=== PATIENT | female | born 1980 ===

== ENCOUNTER 2019-07-09 13:07 | Outpatient (CLI) | payer OTHER ==
--- NOTE | 2019-07-09 17:54 | MRI ---
EXAM: LEFT KNEE MRI WITHOUT IV CONTRAST: History: Left anterior knee pain. FINDINGS: There is a fairly extensive flap tear involving the lateral meniscus extending from near the posterio r root to the midbody with the displaced flap. Minimal intrasubstance degenerative signal of the medi al meniscus with some free edge irregularity, possibly some mild fraying or small subsurface tears. A nterior and posterior cruciate ligaments appear intact. Latera ligament complexes appear intact. No s ignificant joint effusion or abnormal marrow signal. There is mild degenerative and osteoarthrosis ch anges of all three compartments, more so involving the lateral compartment. Quadriceps and patellar t endons are intact. IMPRESSION: Fairly extensive lateral meniscus flap tear. Arthrosis and degenerative changes and some cartilage lo ss involving the medial and lateral compartments. No evidence for other significant acute internal de rangement. POS: T[facility]
== END 2019-07-09 13:08 | disposition home or self-care (01) ==
LOC: BICMRI 13:07
PROVIDERS: ATTEND Family Medicine
DX: M25.562 Pain in left knee (principal); G89.29 Other chronic pain; S83.105A Unspecified dislocation of left knee, initial encounter; S83.282A Other tear of lateral meniscus, current injury, left knee, initial encounter; M17.12 Unilateral primary osteoarthritis, left knee

== ENCOUNTER 2019-09-14 09:57 | Outpatient (CLI) | payer OTHER ==
--- NOTE | 2019-09-14 11:34 | MRI ---
MRI lumbar spine noncontrast HISTORY: Low back pain with bilateral radiculopathy. FINDINGS: Conus medullaris has normal appearance. Vertebral body heights and alignment are maintained . Desiccation of all of the intervertebral discs with the exception of the lumbosacral junction. T12-L1: Disc space narrowing. Posterior central annular fissure with minimal disc bulge. Circumferent ial degenerative changes with mild stenosis of the central canal. L1-2: Mild disc space narrowing. Large posterior annular fissure. Posterior disc bulge and circumfere ntial degenerative changes with moderate stenosis of the central canal. Mild left and [id number] right foraminal stenoses. L2-3: Minimal degenerative retrolisthesis. Prominent posterior disc bulge and circumferential degener ative changes. Moderate stenosis of the central canal. Moderate right and severe left foraminal stenoses. L3-4: Posterior annular fissure. Posterior disc bulge and circumferential degenerative changes. Mild stenosis of the central canal. Severe bilateral foraminal stenoses. L4-5: Disc space narrowing. Very large posterior central disc herniation, severely compressing the th ecal sac and cauda equina, obliterating signal associated with the intrathecal CSF. Degenerative changes and disc bulge also result in moderate right and moderate to severe left foraminal stenoses. L5-S1: Mild disc bulge. Osteophytosis. Thecal sac is patent. Mild bilateral foraminal stenoses. IMPRESSION: Large very severe posterior disc herniation at the L4-5 level, completely compressing the thecal sac and cauda equina. Please consider immediate neurosurgical evaluation. Other multilevel degenerative changes throughout the lumbar spine as detailed above, including severe left foraminal stenoses at the L2-3 and L3-4 levels. Findings were called to the physician farm assistant at the [facility] in [place] at the time of the exam.
== END 2019-09-14 09:58 | disposition home or self-care (01) ==
LOC: BICMRI 09:57
PROVIDERS: ATTEND Family Medicine
DX: M51.16 Intervertebral disc disorders with radiculopathy, lumbar region (principal); G62.9 Polyneuropathy, unspecified; M47.26 Other spondylosis with radiculopathy, lumbar region; M48.061 Spinal stenosis, lumbar region without neurogenic claudication
CPT/HCPCS: 72148

== ENCOUNTER 2019-09-19 16:46 | Inpatient (IN) | payer OTHER ==
[2019-09-19] MEDS ORDERED: Promethazine HCl 25 MG/ML VIAL IM PRN (17:38)
[2019-09-19] MEDS ORDERED: Acetaminophen 325 MG TAB PO PRN (17:38)
[2019-09-19] MEDS ORDERED: Milk Of Magnesia 30 ML UDCUP PO PRN (17:38)
[2019-09-19] MEDS ORDERED: traMADol HCl 50 MG TAB PO PRN (17:38)
[2019-09-19] MEDS ORDERED: Ondansetron PF 4 MG/2 ML Vial IVP PRN (17:38)
[2019-09-19] MEDS ORDERED: Mag-Al 1200 mg/1200 mg/30 ML UDCUP PO PRN (17:38)
[2019-09-19] MEDS ORDERED: Ondansetron PF 4 MG/2 ML Vial ONE (18:06)
[2019-09-19] MEDS ORDERED: Fentanyl 100 MCG/2 ML VIAL ONE (18:06)
[2019-09-19] MEDS ORDERED: Dexamethasone 10 MG/ML VIAL ONE (18:06)
[2019-09-19 18:34] LABS: Anion Gap 12 mmol/L (10-20); BUN (Urea Nitrogen) 18 mg/dL (7.0-18.7); Calc. Creatinine Clearance 0 mL/min (70-130); Calcium 9.5 mg/dL (7.8-10.44); Carbon Dioxide 27 mmol/L (22-29); Chloride 106 mmol/L (98-107); Estimated GFR-MDRD 84; Glucose 89 mg/dL (70-105); Potassium 4.5 mmol/L (3.5-5.1); Sodium 140 mmol/L (136-145)
--- NOTE | 2019-09-19 19:43 | HP ---
HISTORY OF PRESENT ILLNESS: The patient is a 39-year-old female with a history of hypertension who presented to our office earlier today for severe low back and bilateral leg pain. The patient reports the symptoms began suddenly in July 2019 without inciting event. She describes as an aching spasm sensation all across the lower lumbar spine with sharp shooting pains radiating down bilateral legs. This is worse with any movement or activity. She has difficulty getting comfortable in any position. She admits to some heaviness in her legs and is now using a walker for ambulation. She denies any bowel or bladder issues. Denies any saddle anesthesia. She recently had an MRI on 09/14/2019, which is notable for a large L4-L5 disk herniation creating significant central canal stenosis. She was seen by Dr. Rainey as well earlier today in our clinic, but due to her intractable pain, we advised her to present to the ER for additional management. PAST MEDICAL HISTORY: Hypertension. PAST SURGICAL HISTORY: Oral surgery. SOCIAL HISTORY: The patient is currently a resident of [facility]. She does not smoke, drink, or use any drugs. REVIEW OF SYSTEMS: Per HPI. PHYSICAL EXAMINATION: VITAL SIGNS: The patient's vital signs are stable. GENERAL: Awake, alert, and moderately uncomfortable. HEENT: Head; normocephalic and atraumatic. Eyes; PERRLA. Extraocular movements intact. ENT; oral mucosa is pink, intact, and moist. She has a normal voice. NECK: Nontender to palpation. Free active range of motion. No meningismus or nuchal rigidity. CARDIAC: Regular rate and rhythm. LUNGS: Breathing comfortably. Symmetric chest expansion. MUSCULOSKELETAL: Free active range of motion of the upper extremities. No focal motor weakness or reflex asymmetry. In the lower extremity, she has bilateral positive straight leg raise. She has good strength in the distal aspect of the extremities with plantar flexion and dorsiflexion. She does seem to be somewhat weak approximately 3+/5 bilaterally. She has pain with palpation over the lumbar spine or any range of motion. NEUROLOGIC: A and O x4. Weakness in the lower extremities as described in the musculoskeletal exam. ASSESSMENT AND PLAN: This is a 39-year-old female recently evaluated in our clinic for large disk herniation at L4-L5 with bilateral leg pain and weakness. She is not having any loss of bowel or bladder or saddle anesthesia. She is having intractable pain, so we will admit her to the Med/Surg floor for pain control. I will go ahead and start her on Decadron 4 q.6. I anticipate a need for surgical intervention in the near future and we will come up with timing of this. I have discussed with Dr. Rainey, who is in agreement. Job ID: [id number]
[2019-09-19] MEDS: Dexamethasone 4 mg/ml Vial SLOW IVP SCH ×2 (19:44→23:34)
[2019-09-19] MEDS: Famotidine 20 MG TAB PO SCH (20:01)
[2019-09-19] MEDS: tiZANidine HCl 4 MG TAB PO PRN (20:02)
[2019-09-19] MEDS: HYDROcodone/Acetaminophen 10/325 mg Tablet PO PRN (21:20)
[2019-09-19 22:03] VITALS: BMI 41.0
[2019-09-19] MEDS: Morphine 2 MG/ML SYRINGE SLOW IVP PRN (22:22)
[2019-09-20] MEDS: Morphine 2 MG/ML SYRINGE SLOW IVP PRN ×5 (00:54→16:46)
[2019-09-20] MEDS: HYDROcodone/Acetaminophen 10/325 mg Tablet PO PRN ×5 (00:54→19:13)
[2019-09-20] MEDS: Dexamethasone 4 mg/ml Vial SLOW IVP SCH ×3 (04:57→18:19)
[2019-09-20] MEDS: tiZANidine HCl 4 MG TAB PO PRN ×3 (04:57→18:19)
[2019-09-20 06:34] LABS: #Lymphocytes 0.5 thou/uL (1.20-3.40); #Monocytes 0.1 thou/uL (0.11-0.59); #Neutrophils 4.4 thou/uL (1.40-6.50); %Basophils 0.1 % (0.0-1.0); %Eosinophils 0.4 % (0.0-10.0); %Lymphocytes 10.6 % (21.0-51.0); %Monocytes 1.9 % (0.0-10.0); Hemoglobin 12.1 g/dL (12.0-16.0); Mean Corpuscular HGB CONC 34.1 g/dL (32.0-36.0); Mean Corpuscular Hemoglobin 29.8 pg (27.0-31.0); Mean Corpuscular Volume 87.6 fL (78.0-98.0); Mean Platelet Volume 8.3 fL (7.4-10.4); Platelet Count 254 thou/uL (130-400); RBC Distribution Width 13.1 % (11.5-14.5); Red Blood Cell (RBC) Count 4.06 mill/uL (4.20-5.40); White Blood Cell (WBC) Count 5.1 thou/uL (4.8-10.8)
--- NOTE | 2019-09-20 08:09 | PRG ---
DATE OF SERVICE: 09/20/2019 The patient reports some improvement of her pain overnight on the floor. She is still having quite a bit of pain as the medications begin to wear off. She is still moving her legs easily in the bed and has no bowel or bladder issues. On exam, she is awake, alert, in no acute distress. She has free active range of motion of all extremities. She still is slightly weak over the proximal legs, but has good strength elsewhere. She has bilateral positive straight leg raises. Her reflexes are intact. Sensation is intact to light touch. We will go ahead and increase her [place] 10/325 one to two tabs p.o. q.4 to 6 h. p.r.n. pain. Also, we will continue her steroids and add gabapentin 300 t.i.d. Hopefully, this will help her with her pain. I anticipate surgery for Tuesday. Case has been added and all pre op orders have been done. Job ID: [id number] MTDD
[2019-09-20] MEDS: Famotidine 20 MG TAB PO SCH ×2 (08:32→21:01)
[2019-09-20] MEDS: Gabapentin 300 MG CAP PO SCH ×3 (08:32→21:01)
--- NOTE | 2019-09-20 10:24 | PRG ---
DATE OF SERVICE: 09/20/2019 The patient is seen and examined. I agree with Zuleyma Andrews's evaluation on 09/19/2019. Ms. Nonnenmacher had to be admitted after leaving clinic due to severe exacerbation of pain. She has a huge L4-L5 disk, which is high risk for progressive neurologic deficit as well as intractable pain and I prefer to admit her to the hospital for observation. I again discussed with her that this will require surgical intervention. We are planning L4-L5 laminectomy and diskectomy on Tuesday. We will continue with Decadron and pain medicine. She expressed understanding. All questions were answered and she wished to proceed. Job ID: [id number]
[2019-09-20] MEDS: diphenhydrAMINE 50 MG/ML VIAL IVP PRN ×2 (10:56→16:46)
[2019-09-20] MEDS: Senokot 8.6 MG TAB PO PRN (16:45)
[2019-09-20] MEDS: Amitriptyline HCl 100 MG TAB PO SCH (21:01)
[2019-09-20] MEDS ORDERED: Promethazine HCl 25 MG/ML VIAL IM PRN (23:19)
[2019-09-20] MEDS ORDERED: Ondansetron PF 4 MG/2 ML Vial IVP PRN (23:19)
[2019-09-20] MEDS ORDERED: diphenhydrAMINE 50 MG/ML VIAL IM PRN (23:19)
[2019-09-20] MEDS ORDERED: Naloxone HCl 0.4 mg/ml Vial IV PRN (23:19)
[2019-09-20] MEDS ORDERED: Zolpidem Tartrate 5 MG TAB PO PRN (23:19)
[2019-09-20] MEDS ORDERED: HYDROmorphone 10 mg/100 ml CADD IVPB PRN (23:19)
[2019-09-20] MEDS ORDERED: HYDROmorphone 10 mg/100 ml CADD IV PRN (23:23)
[2019-09-20] MEDS ORDERED: Communication Order-Pharmacy FS SCH (23:30)
[2019-09-21] MEDS: Dexamethasone 4 mg/ml Vial SLOW IVP SCH ×5 (00:14→23:13)
--- NOTE | 2019-09-21 08:31 | PRG ---
DATE OF SERVICE: 09/21/2019 Yesterday, the patient had some increased pain that was not being well controlled with p.o. medications. Therefore, Anesthesia was consulted to place the SPRING MACHINE OPERATOR. Since placement, the patient reports she has had significant improvement, especially during the day. She is still having some problem resting at night. On exam this morning, the patient is sitting comfortably in the bed. She is in no acute distress. She is moving her legs easily. Sensation is intact. Neurologic exam is unchanged. We will continue pain control measures and plan for surgery, L4-L5 laminectomy and diskectomy on Tuesday. Job ID: [id number] [facility]
[2019-09-21] MEDS: diphenhydrAMINE 50 MG/ML VIAL IVP PRN ×3 (08:51→22:20)
[2019-09-21] MEDS: Ferrous Sulfate 325 MG TAB PO SCH (08:51)
[2019-09-21] MEDS: Senokot 8.6 MG TAB PO PRN (08:51)
[2019-09-21] MEDS: Lisinopril 20 MG TAB PO SCH (08:51)
[2019-09-21] MEDS: Famotidine 20 MG TAB PO SCH ×2 (08:51→20:06)
[2019-09-21] MEDS: Gabapentin 300 MG CAP PO SCH ×3 (08:51→20:06)
[2019-09-21] MEDS: HYDROmorphone 10 mg/100 ml CADD IV PRN (14:15)
[2019-09-21] MEDS: Amitriptyline HCl 100 MG TAB PO SCH (20:06)
[2019-09-22] MEDS: Dexamethasone 4 mg/ml Vial SLOW IVP SCH (05:05)
[2019-09-22] MEDS: HYDROmorphone 10 mg/100 ml CADD IV PRN ×2 (05:11→18:23)
--- NOTE | 2019-09-22 08:56 | PRG ---
DATE OF SERVICE: 09/22/2019 SUBJECTIVE: The patient reports she is feeling improved today. She is having left leg pain and been able to get a little bit more rest. She is not having any neurologic changes. OBJECTIVE: GENERAL: On exam this morning, she is awake, alert, in no acute distress. She has good range of motion in the bed. No focal motor weakness that I can appreciate at this time. PLAN: I will go ahead and dc her decadron today and plan for surgery on Tuesday. Job ID: [id number] [facility]
[2019-09-22] MEDS: Gabapentin 300 MG CAP PO SCH ×3 (09:53→20:10)
[2019-09-22] MEDS: Ferrous Sulfate 325 MG TAB PO SCH (09:54)
[2019-09-22] MEDS: Famotidine 20 MG TAB PO SCH ×2 (09:54→20:10)
[2019-09-22] MEDS: Lisinopril 20 MG TAB PO SCH (09:54)
[2019-09-22] MEDS: diphenhydrAMINE 50 MG/ML VIAL IVP PRN ×4 (10:00→21:46)
[2019-09-22] MEDS: tiZANidine HCl 4 MG TAB PO PRN (13:13)
[2019-09-22] MEDS: Amitriptyline HCl 100 MG TAB PO SCH (20:10)
[2019-09-23] MEDS: tiZANidine HCl 4 MG TAB PO PRN ×3 (01:52→20:54)
[2019-09-23] MEDS: Gabapentin 300 MG CAP PO SCH ×3 (07:59→20:54)
[2019-09-23] MEDS: Ferrous Sulfate 325 MG TAB PO SCH (07:59)
[2019-09-23] MEDS: Famotidine 20 MG TAB PO SCH ×2 (07:59→20:54)
[2019-09-23] MEDS: HYDROmorphone 10 mg/100 ml CADD IV PRN ×2 (07:59→19:18)
--- NOTE | 2019-09-23 09:11 | PRG ---
DATE OF SERVICE: 09/23/2019 SUBJECTIVE: I examined the patient at the bedside. She is having some increased cramping in the right calf. She continues to be able to move her extremities without difficulty and denies any neurologic changes or bowel or bladder issues. OBJECTIVE: GENERAL: On exam this morning, patient is awake, alert, in no acute distress. EXTREMITIES: She has good range of motion of her extremities. No focal motor weakness that I can appreciate at this time. PLAN: Plan is for L4-L5 laminectomy and diskectomy tomorrow. The patient should be n.p.o. at midnight. Consent has been done. Job ID: [id number]
[2019-09-23] MEDS: Lisinopril 20 MG TAB PO SCH (10:09)
[2019-09-23] MEDS: diphenhydrAMINE 50 MG/ML VIAL IVP PRN ×3 (13:10→23:26)
[2019-09-23] MEDS: Amitriptyline HCl 100 MG TAB PO SCH (20:55)
[2019-09-24] MEDS ORDERED: Cyclobenzaprine 10 MG TAB PO PRN (01:41)
[2019-09-24] MEDS: HYDROmorphone 10 mg/100 ml CADD IV PRN (06:35)
[2019-09-24] MEDS: diphenhydrAMINE 50 MG/ML VIAL IVP PRN (06:40)
[2019-09-24] MEDS: Cyclobenzaprine 10 MG TAB PO PRN (06:58)
[2019-09-24] MEDS ORDERED: CEFAZOLIN 2 GM in Premix Bag 1 BAG IVPB SCH (09:00)
[2019-09-24] MEDS: Gabapentin 300 MG CAP PO SCH ×3 (09:22→20:32)
[2019-09-24] MEDS: Lisinopril 20 MG TAB PO SCH (09:52)
[2019-09-24] MEDS: Famotidine 20 MG TAB PO SCH ×2 (09:52→20:32)
[2019-09-24] MEDS: Ferrous Sulfate 325 MG TAB PO SCH (09:52)
[2019-09-24] MEDS ORDERED: Dexamethasone 20 MG/5 ML VIAL ONE (10:10)
[2019-09-24] MEDS ORDERED: PROPOFOL 200 MG/20 ML VIAL ONE (10:10)
[2019-09-24] MEDS ORDERED: Glycopyrrolate 0.2 MG/ML 5 ML SYRINGE ONE (10:10)
[2019-09-24] MEDS ORDERED: Rocuronium Bromide 10 MG/ML (10ML VIAL) ONE (10:10)
[2019-09-24] MEDS ORDERED: Ondansetron PF 4 MG/2 ML Vial ONE (10:10)
[2019-09-24] MEDS ORDERED: Fentanyl 100 MCG/2 ML VIAL ONE ×3 (10:17→13:31)
[2019-09-24] MEDS ORDERED: Midazolam HCl 2 mg/2 ml Vial ONE ×2 (11:24→13:41)
[2019-09-24] MEDS ORDERED: HYDROmorphone 2 MG/ML VIAL SLOW IVP PRN (13:33)
[2019-09-24] MEDS ORDERED: Promethazine HCl 25 MG/ML VIAL IM PRN (13:33)
[2019-09-24] MEDS ORDERED: Promethazine HCl 25 MG/ML VIAL SLOW IVP PRN (13:33)
[2019-09-24] MEDS ORDERED: Ondansetron HCl/PF 4 MG/2 ML Vial IVP PRN (13:33)
[2019-09-24] MEDS ORDERED: HYDROmorphone 2 MG/ML VIAL ONE (13:40)
[2019-09-24] MEDS ORDERED: Promethazine HCl 25 MG/ML VIAL ONE (13:40)
--- NOTE | 2019-09-24 13:56 | OP ---
DATE OF PROCEDURE: 09/24/2019 [employer]PERVISOR [employer]ING: Zuleyma Andrews PA-C PROCEDURE PERFORMED: Left L4-L5 microdiscectomy. DESCRIPTION OF PROCEDURE: The patient was brought to the operating room and intubated. She was rolled in a prone position on gel-filled chest rolls. Incision was made and dissected in the midline, we identified L4-L5 and the our level was confirmed by x-ray. The procedure and exposure were very difficult given her exceedingly large body habitus. We performed left L4-L5 hemilaminectomy, removed via ligament, identified the large disk extrusion, removed in multiple soft fragments. A complete decompression of the left L5 nerve root and the thecal sac was achieved. The wound was extensively irrigated. MAC hemostasis was secured. Vancomycin powder was applied and the wound was closed in anatomic layers. Job ID: [id number]
[2019-09-24] MEDS: Amitriptyline HCl 100 MG TAB PO SCH (20:32)
[2019-09-25] MEDS ORDERED: HYDROcodone/Acetaminophen 10/325 mg Tablet PO PRN (06:16)
[2019-09-25] MEDS ORDERED: traMADol HCl 50 MG TAB PO PRN ×2 (06:17)
--- NOTE | 2019-09-25 06:45 | PRG ---
DATE OF SERVICE: 09/25/2019 The patient is postoperative day #1, status post L4 through L5 laminectomy, diskectomy. Following the surgery, she was transitioned back to the Med/Surgery floor, where her pain is significantly improved. She is tolerating a regular diet, and she is voiding appropriately. She has been out of bed, short distances and walking in the room with her walker. On exam this morning, the patient awakens easily and she is in no acute distress. Her vital signs have been stable and she has been afebrile overnight. She is moving her legs easily in the bed. No focal motor weakness appreciated. We will plan to discontinue her CASHIER AND WAITER/WAITRESS today and transition to p.o. medications. I have ordered Verdon and tramadol for her pain. We will also have her work with PT today. Anticipate back to the senior living tomorrow. Job ID: [id number]
[2019-09-25] MEDS: diphenhydrAMINE 25 MG CAP PO PRN ×3 (06:53→23:51)
[2019-09-25] MEDS: HYDROcodone/Acetaminophen 10/325 mg Tablet PO PRN ×3 (06:54→23:51)
[2019-09-25] MEDS: Famotidine 20 MG TAB PO SCH ×2 (09:16→21:37)
[2019-09-25] MEDS: Gabapentin 300 MG CAP PO SCH ×3 (09:16→21:37)
[2019-09-25] MEDS: Ferrous Sulfate 325 MG TAB PO SCH (09:16)
[2019-09-25] MEDS: Lisinopril 20 MG TAB PO SCH (09:17)
[2019-09-25] MEDS: Cyclobenzaprine 10 MG TAB PO PRN (17:56)
[2019-09-25] MEDS: Amitriptyline HCl 100 MG TAB PO SCH (21:37)
[2019-09-26 04:04] VITALS: TEMP 98.2
[2019-09-26] MEDS: Famotidine 20 MG TAB PO SCH (07:37)
[2019-09-26] MEDS: HYDROcodone/Acetaminophen 10/325 mg Tablet PO PRN (07:37)
[2019-09-26] MEDS: Ferrous Sulfate 325 MG TAB PO SCH (07:37)
[2019-09-26] MEDS: Gabapentin 300 MG CAP PO SCH (07:37)
[2019-09-26] MEDS: diphenhydrAMINE 25 MG CAP PO PRN (07:37)
[2019-09-26] MEDS: Lisinopril 20 MG TAB PO SCH (07:37)
[2019-09-26 07:44] VITALS: BP 131/83
--- NOTE | 2019-09-26 15:24 | DIS ---
DATE OF ADMISSION: 09/19/2019 DATE OF DISCHARGE: 09/26/2019 The patient is a 39-year-old female, recently evaluated in our office on 09/19/2019 for acute back and bilateral leg pain. On MRI, she was found to have a very large disk herniation with severe central canal stenosis at L4-L5. She was directly admitted to the hospital and underwent L4-L5 laminectomy and diskectomy. Following the surgery, she was transitioned back to the Med/Surg floor, where her pain was significantly improved, she was tolerating a p.o. diet, she was voiding appropriately. She was ambulating in the department without difficulty. Her CNC TECHNICIAN was discontinued and she was transitioned to oral p.o. pain medications, which she tolerated well. We will plan to send her back to the [facility]. I have discussed my care and provided with instructions. We will plan to follow up with the patient in 2 weeks and the gianna should be removed at that time. I have discussed home care and precautions and reasons to reach out to us sooner. She has been provided with scripts for Tylenol No. 3 and ibuprofen. PRESSURE WASHER AWARxE was checked. Job ID: [id number]
== END 2019-09-26 10:31 | DRG 520 ==
LOC: ERS 16:46 → SURG A 19:34 → OBSVTOIN 19:34
PROVIDERS: ADMIT Surgery; ATTEND Surgery
PROC: 0SB20ZZ Excision of Lumbar Vertebral Disc, Open Approach (ICD-10-PCS; principal; 2019-09-24)
DX: M48.061 Spinal stenosis, lumbar region without neurogenic claudication (principal); I10 Essential (primary) hypertension; F41.9 Anxiety disorder, unspecified; F32.9 Major depressive disorder, single episode, unspecified; Z87.891 Personal history of nicotine dependence
CPT/HCPCS: 36415; 76000; 80048; 85025; 96374; 96375; J0690; J1100; J1170; J1200; J2250; J2270; J2405; J2550; J2704; J3010; J3370; Q0163